=== PATIENT | male | born 1980 | race Caucasian/White ===

== ENCOUNTER 2017-03-30 16:13 | Emergency (ER) | payer SELFPAY ==
[~2017-03-30] VITALS: Ht 188 cm; Wt 115.8 kg
[2017-03-30] MEDS ORDERED: LORazepam 2 MG/ML, 1ML ONE (17:57)
[2017-03-30] MEDS ORDERED: LORazepam 2 MG/ML, 1ML IVPush ONE (18:00)
[2017-03-30] MEDS ORDERED: SODIUM CHLORIDE FLUSH 10ML SYR IVF ONE (18:00)
[2017-03-30] MEDS ORDERED: SODIUM CHLORIDE 0.9% 1,000ML IVBOLUS ONE (18:00)
[2017-03-30 18:16] LABS: HEMATOCRIT 49.2 % (39.2-51.8); HEMOGLOBIN 16.5 g/dL (13.7-18.0); WHITE BLOOD COUNT 7.1 x10^3/uL (3.4-10)
[2017-03-30 18:30] LABS: ASPARTATE AMINO TRANSFERASE 123 U/L (15-37); BLOOD UREA NITROGEN 4 mg/dL (7-18)
[2017-03-30 20:05] VITALS: BP 138/89
== END 2017-03-30 21:25 | disposition left against medical advice (07) ==
LOC: ED 20:07 → UNDOADMIN 20:34 → EDIP 20:34 → ED 21:25
DX: K80.50 Calculus of bile duct without cholangitis or cholecystitis without obstruction (principal); R17 Unspecified jaundice; K83.1 Obstruction of bile duct; Z87.891 Personal history of nicotine dependence; I48.91 Unspecified atrial fibrillation; M54.9 Dorsalgia, unspecified; G89.29 Other chronic pain
CPT/HCPCS: 36415; 71010; 76700; 80053; 81003; 82248; 83605; 83690; 84145; 85025; 85610; 85730; 87040; 93005; 96361; 96374; 99285; J2060; J7030